=== PATIENT | female | born 1995 | race Hispanic/Latino ===

== ENCOUNTER 2023-06-28 09:56 | Inpatient (IN) | payer MEDICAID ==
[2023-06-27 11:31] LABS: Hematocrit 34.1 % (34.9-44.5); Hemoglobin 11.2 g/dL (12.0-15.5); Platelet Count 166 10x3/uL (150-450)
[2023-06-27 12:02] LABS: HBSAg Index 0.24 S/CO (0-0.99); Hep B Surf Ag Non-Reactive S/CO (NonReactive)
[2023-06-27 12:04] LABS: Syphilis Antibody Nonreactive (Nonreactive); Syphilis Antibody Index 0.05 S/CO (<1.00 Non-Reactive)
[2023-06-28] MEDS ORDERED: Promethazine HCl 25 MG/ML VIAL IM PRN ×2 (10:08→14:23)
[2023-06-28] MEDS ORDERED: hydrALAZINE 20 MG/ML VIAL SLOW IVP PRN ×2 (10:08→15:42)
[2023-06-28] MEDS ORDERED: Bicitra 30 ML UDCUP PO PRN (10:08)
[2023-06-28] MEDS ORDERED: Ondansetron PF 4 MG/2 ML Vial IVP PRN ×3 (10:08→15:42)
[2023-06-28] MEDS ORDERED: Oxytocin 30 units/NS 500 ML 500 ML IV SCH (10:15)
[2023-06-28 10:38] VITALS: BMI 39.9
[2023-06-28] MEDS: CEFAZOLIN 2 GM in Sodium Chloride 0.9% 100 ML IVPB SCH (11:49)
[2023-06-28] MEDS: Famotidine/PF 20 mg/2ml Vial SLOW IVP PRN (11:49)
[2023-06-28] MEDS ORDERED: Moisturizing Cream (Eucerin) 113 GM JAR TOP PRN (14:23)
[2023-06-28] MEDS ORDERED: Naloxone HCl 0.4 mg/ml Vial IV PRN (14:23)
[2023-06-28] MEDS ORDERED: Promethazine HCl 25 MG SUPP PR PRN (14:23)
[2023-06-28] MEDS ORDERED: diphenhydrAMINE 50 MG/ML VIAL IVP PRN (14:23)
[2023-06-28] MEDS ORDERED: Naloxone HCl 0.4 mg/ml Vial IVP PRN ×2 (14:23)
[2023-06-28] MEDS ORDERED: fentaNYL 50 mcg/mL 1 mL Vial SLOW IVP PRN (14:23)
[2023-06-28] MEDS ORDERED: HYDROmorphone 0.5 MG/0.5 ML SYRINGE SLOW IVP PRN (14:23)
[2023-06-28] MEDS ORDERED: Communication Order-Pharmacy FS SCH (14:30)
[2023-06-28] MEDS ORDERED: Simethicone Chewable 80 MG TAB PO PRN (15:42)
[2023-06-28] MEDS ORDERED: Lanolin Ointment 7 GM TUBE TOP PRN (15:42)
[2023-06-28] MEDS ORDERED: Bisacodyl 10 MG SUPP PR PRN (15:42)
[2023-06-28] MEDS: Morphine PF 10 MG/10 ML VIAL ONE (15:51)
[2023-06-28] MEDS: fentaNYL 50 mcg/mL 1 mL Vial ONE (15:51)
[2023-06-28] MEDS: diphenhydrAMINE 50 MG/ML VIAL ONE (15:52)
[2023-06-28] MEDS: Phenylephrine 40 MG/NS 250 ML 250 ML ONE (15:52)
[2023-06-28] MEDS: Ondansetron PF 4 MG/2 ML Vial ONE (15:52)
[2023-06-28] MEDS: Oxytocin 10 UNITS/ML VIAL ONE (15:52)
[2023-06-28] MEDS: Phytonadione Neonatal 1 MG/0.5 ML AMP ONE (15:52)
[2023-06-28] MEDS: Erythromycin Base 0.5% Oint 1 GM TUBE ONE (15:52)
[2023-06-28] MEDS: Ketorolac Tromethamine 30 MG (1 mL) VIAL IVP SCH (16:11)
[2023-06-28] MEDS: Meperidine HCl/PF 25 MG (1 mL) VIAL SLOW IVP PRN (16:12)
[2023-06-28] MEDS: Oxytocin 30 units/NS 500 ML 500 ML ONE (16:25)
[2023-06-28] MEDS: Acetaminophen 325 MG TAB PO SCH (18:08)
[2023-06-28] MEDS: Ondansetron PF 4 MG/2 ML Vial IVP PRN (20:45)
[2023-06-29] MEDS: Docusate 100 MG CAP PO SCH (02:06)
[2023-06-29] MEDS: Ferrous Sulfate 325 MG TAB PO SCH (02:06)
[2023-06-29 04:34] LABS: Hematocrit 27.5 % (34.9-44.5); Mean Corpuscular HGB CONC 32.7 g/dL (32.0-36.0); Mean Corpuscular Hemoglobin 25.1 pg (27.0-33.0); Mean Corpuscular Volume 76.6 fl (81.6-98.3); Platelet Count 139 10x3/uL (150-450); RBC Distribution Width 13.8 % (11.5-14.5); Red Blood Cell (RBC) Count 3.59 10x6/uL (3.90-5.03)
[2023-06-29 04:38] LABS: ALT (SGPT) 85 U/L (8-55); AST (SGOT) 68 U/L (5-34); Albumin 1.7 g/dL (3.5-5.0); Alkaline Phosphatase 237 U/L (40-110); Bilirubin, Direct 0.5 mg/dL (0.1-0.3); Bilirubin, Total 0.8 mg/dL (0.2-1.2); Protein, Total 5.1 g/dL (6.0-8.3)
[2023-06-29] MEDS: Ketorolac Tromethamine 30 MG (1 mL) VIAL IVP PRN (04:49)
[2023-06-29] MEDS: Boostrix 0.5 ML (Tdap) VIAL (>/=7 yrs of age) IM ONE (08:15)
[2023-06-29] MEDS: Prenatal Vitamin 1 TAB PO SCH (08:16)
[2023-06-29] MEDS: HYDROcodone/Acetaminophen 5/325 mg Tablet PO PRN (13:02)
[2023-06-29] MEDS: Ibuprofen 800 MG TAB PO SCH (13:03)
[2023-06-30 04:27] LABS: Hematocrit 26.5 % (34.9-44.5); Hemoglobin 8.6 g/dL (12.0-15.5); Mean Corpuscular HGB CONC 32.5 g/dL (32.0-36.0); Mean Platelet Volume 13.9 fl (7.4-10.4); Platelet Count 150 10x3/uL (150-450); Red Blood Cell (RBC) Count 3.44 10x6/uL (3.90-5.03); White Blood Cell (WBC) Count 9.2 10x3/uL (3.5-10.5)
[2023-06-30 04:52] LABS: ALT (SGPT) 76 U/L (8-55); AST (SGOT) 51 U/L (5-34); Albumin 1.7 g/dL (3.5-5.0); Alkaline Phosphatase 233 U/L (40-110); Bilirubin, Direct 0.2 mg/dL (0.1-0.3); Bilirubin, Total 0.4 mg/dL (0.2-1.2); Protein, Total 5.3 g/dL (6.0-8.3)
[2023-06-30 11:34] VITALS: BP 119/68; TEMP 98.7
== END 2023-06-30 14:25 | disposition home or self-care (01) | DRG 787 ==
LOC: CSHLD 09:56 → CSHPP 16:48
PROVIDERS: ADMIT Student in an Organized Health Care Education/Training Program; ATTEND Student in an Organized Health Care Education/Training Program
PROC: 10D00Z1 Extraction of Products of Conception, Low, Open Approach (ICD-10-PCS; principal; 2023-06-28)
DX: O34.211 Maternal care for low transverse scar from previous cesarean delivery (principal); D62 Acute posthemorrhagic anemia; O26.643 Intrahepatic cholestasis of pregnancy, third trimester; O99.12 Other diseases of the blood and blood-forming organs and certain disorders involving the immune mechanism complicating childbirth; D69.6 Thrombocytopenia, unspecified; N73.6 Female pelvic peritoneal adhesions (postinfective); Z3A.37 37 weeks gestation of pregnancy; Z37.0 Single live birth; O90.81 Anemia of the puerperium
CPT/HCPCS: 36415; 51702; 80076; 85014; 85018; 85027; 85049; 86780; 86850; 86900; 86901; 87340; J1200; J1885; J2175; J2274; J2405; J2590; J3010; J3490; S0028